=== PATIENT | male | born 1955 | race Caucasian/White ===

== ENCOUNTER 2021-05-10 06:35 | Inpatient (IN) | payer MEDICARE, MEDICAID ==
[~2021-05-10] VITALS: Ht 175.3 cm; Wt 104.0 kg
[2021-05-10] MEDS ORDERED: LIDOCAINE 2%HCL (LOCAL ANESTH.) INJ 20ML MDV ONE (07:41)
[2021-05-10] MEDS ORDERED: fentaNYL CITRATE 100 MCG/2 ML VL ONE (08:11)
[2021-05-10] MEDS ORDERED: MIDAZOLAM HCL 1MG/1ML-2 ML VIAL ONE (08:11)
[2021-05-10] MEDS ORDERED: ceFAZolin 1GM/50ML 50 ML IV ONE (08:27)
[2021-05-10] MEDS ORDERED: MORPHINE SULF INJ 2 MG/ML SYRINGE 1ML IV PRN (09:45)
[2021-05-10] MEDS ORDERED: ONDANSETRON HCL 4 MG/2 ML VIAL IV PRN (09:45)
[2021-05-10] MEDS ORDERED: ACETAMINOPHEN 500 MG TAB PO PRN (09:45)
[2021-05-10] MEDS ORDERED: NITROGLYCERIN 0.4 MG SL TAB SL PRN (09:45)
[2021-05-10] MEDS ORDERED: APIX5TAB PO (09:47)
[2021-05-10] MEDS ORDERED: FAMO20TA10 PO (09:47)
[2021-05-10] MEDS ORDERED: FURO1TAB31 PO (09:47)
[2021-05-10] MEDS ORDERED: AMIO200T33 PO (09:47)
[2021-05-10] MEDS ORDERED: PANT40TA2 PO (09:47)
[2021-05-10] MEDS ORDERED: CARV25TA PO (09:47)
[2021-05-10] MEDS ORDERED: FAMOTIDINE 20 MG TAB PO SCH (10:00)
[2021-05-10] MEDS ORDERED: APIXABAN 5 MG TAB PO SCH (13:00)
[2021-05-10] MEDS: APIXABAN 5 MG TAB PO SCH ×2 (13:00→20:50)
[2021-05-10 17:00] VITALS: BP 137/97
[2021-05-10 17:30] VITALS: BP 137/97
[2021-05-10] MEDS: AMIODARONE HCL 200 MG TAB PO SCH (17:52)
[2021-05-10] MEDS: FUROSEMIDE 40 MG TAB PO SCH (17:53)
[2021-05-10] MEDS: PANTOPRAZOLE 40 MG TAB PO SCH (17:53)
[2021-05-10] MEDS ORDERED: ZOLPIDEM TARTRATE 5 MG TAB PO PRN (18:15)
[2021-05-10] MEDS ORDERED: TRAZ-181 PO (18:19)
[2021-05-10] MEDS: CARVEDILOL 12.5 MG TAB PO SCH (20:58)
[2021-05-10] MEDS ORDERED: traZODone HCL 50 MG TAB PO SCH (22:00)
[2021-05-10] MEDS ORDERED: ZOLPIDEM TARTRATE 5 MG TAB PO ONE (22:00)
[2021-05-11 05:00] VITALS: BP 133/80
[2021-05-11 09:00] VITALS: BP 132/63
[2021-05-11] MEDS: AMIODARONE HCL 200 MG TAB PO SCH (10:29)
[2021-05-11] MEDS: CARVEDILOL 12.5 MG TAB PO SCH (10:30)
[2021-05-11] MEDS: FUROSEMIDE 40 MG TAB PO SCH (10:31)
[2021-05-11] MEDS: APIXABAN 5 MG TAB PO SCH (10:31)
[2021-05-11] MEDS: PANTOPRAZOLE 40 MG TAB PO SCH (10:31)
[2021-05-11 13:00] VITALS: BP 136/96
[2021-05-11 13:46] VITALS: BP 132/66
[2021-05-11] MEDS ORDERED: ZOLPIDEM TARTRATE 5 MG TAB PO PRN (22:00)
== END 2021-05-11 15:17 | disposition home or self-care (01) | DRG 274 ==
LOC: CATH 06:35 → TELE 09:39 → TELE-WESTW 16:56
PROVIDERS: ADMIT Specialist; ATTEND Internal Medicine
PROC: 02583ZZ Destruction of Conduction Mechanism, Percutaneous Approach (ICD-10-PCS; principal; 2021-05-10)
PROC: 4B02XTZ Measurement of Cardiac Defibrillator, External Approach (ICD-10-PCS; 2021-05-10)
PROC: 4A0234Z Measurement of Cardiac Electrical Activity, Percutaneous Approach (ICD-10-PCS; 2021-05-10)
DX: I48.91 Unspecified atrial fibrillation (principal); D68.69 Other thrombophilia; I50.22 Chronic systolic (congestive) heart failure; Z95.0 Presence of cardiac pacemaker; E66.9 Obesity, unspecified; E78.5 Hyperlipidemia, unspecified; Z79.899 Other long term (current) drug therapy; Z79.891 Long term (current) use of opiate analgesic; Z79.01 Long term (current) use of anticoagulants; I11.0 Hypertensive heart disease with heart failure
CPT/HCPCS: 87081; 99152; 99153; G0378; J0690; J2250